=== PATIENT | male | born 1995 | race Two or more races ===

== ENCOUNTER 2024-11-07 10:26 | Emergency (ER) | payer OTHER ==
[~2024-11-07] VITALS: Ht 200.7 cm; Wt 120.5 kg
[2024-11-07 10:54] LABS: BASOPHILS % (AUTO) 0.7 % (0-1); EOSINOPHILS % (AUTO) 0.6 % (0-6); HEMATOCRIT 48.3 % (42.0-52.0); HEMOGLOBIN 16.7 g/dl (14.0-17.9); LYMPHOCYTES # (AUTO) 1.3 X10'3 (1.1-4.8); LYMPHOCYTES % (AUTO) 23.1 % (21-51); MEAN CORPUSCULAR HEMOGLOBIN 30.8 PG (27.0-31.0); MEAN CORPUSCULAR HGB CONC 34.7 g/dL (33.0-36.5); MEAN PLATELET VOLUME 7.8 FL (7.4-10.4); MONOCYTES # (AUTO) 0.5 X10'3 (0-0.9); MONOCYTES % (AUTO) 8.3 % (2-12); NEUTROPHILS # (AUTO) 3.8 X10'3 (1.8-7.7); NEUTROPHILS % (AUTO) 67.3 % (42-75); PLATELET COUNT 313 X10'3 (140-440); RED BLOOD COUNT 5.43 X10'6 (4.70-6.10); RED CELL DISTRIBUTION WIDTH 13.6 % (11.5-14.5); WHITE BLOOD COUNT 5.6 X10'3 (4.5-11.0)
[2024-11-07 11:11] LABS: ALANINE AMINOTRANSFERASE 30 U/L (12-78); ALBUMIN 4.3 G/DL (3.4-5.0); ALBUMIN/GLOBULIN RATIO 1.1 (1.1-1.5); ALKALINE PHOSPHATASE 58 IU/L (46-116); ANION GAP 8 (8-16); ASPARTATE AMINO TRANSFERASE 19 U/L (10-37); BILIRUBIN,TOTAL 0.6 MG/DL (0.1-1.0); BLOOD UREA NITROGEN 15 MG/DL (7-18); BUN/CREATININE RATIO 17.4 (10.0-20.0); CALCIUM 9.7 MG/DL (8.5-10.1); CHLORIDE 104 MMOL/L (99-107); CREATININE 0.86 MG/DL (0.60-1.10); GLUCOSE 110 MG/DL (70-104); POTASSIUM 4.1 MMOL/L (3.5-5.1); SODIUM 138 MMOL/L (135-145); TOTAL CARBON DIOXIDE 26.1 MMOL/L (24-32); TOTAL PROTEIN 8.3 G/DL (6.4-8.2); eCRCL 169 ML/MIN; eGFR > 90 ML/MIN
[2024-11-07 11:19] LABS: PRO BRAIN NATRIURETIC PEPTIDE < 30 PG/ML (0-125)
[2024-11-07 15:01] VITALS: BP 124/76; PULSE 68; TEMP 98; O2SAT 99
[2024-11-07 15:07] VITALS: RESP 16
[2024-11-07] MEDS: ketorolac trometh 15mg/ml vial 15 MG/ML ML IV ONE (15:07)
[2024-11-07] MEDS: dexamethasone sod phosphate 10mg/ml inj IV STA (15:07)
[2024-11-07] MEDS: diphenhydrAMINE 50 mg/ml inj IV ONE (15:07)
[2024-11-07] MEDS: proCHLORperazine 10 MG/2 ml inj IV ONE (15:07)
[2024-11-07] MEDS: ketorolac trometh 30MG/ML vial 30 MG/ML VIAL IV ONE (15:22)
== END 2024-11-07 15:28 | disposition home or self-care (01) ==
LOC: ER 10:27
DX: R20.2 Paresthesia of skin (principal); M79.605 Pain in left leg; M79.604 Pain in right leg
CPT/HCPCS: 36415; 70450; 71045; 80053; 83880; 84484; 85025; 93005; 93971; 96374; 96375; 99285; J0780; J1100; J1200; J1885